=== PATIENT | female | born 1985 | race Caucasian/White ===

== ENCOUNTER 2019-10-18 05:08 | Inpatient (IN) | payer MEDICAID, SELFPAY ==
[2019-10-18] VITALS (21 sets, daily range): BP systolic 86–113; BP diastolic 43–73; PULSE 61–106; RESP 10–16; TEMP 35.7–36.8; O2SAT 95–100; BMI 28.7
[2019-10-18] MEDS: Lactated Ringers 1,000 ML 999 ML IV ×2 (05:40→13:54)
[2019-10-18 06:04] LABS: Absolute Lymphocyte Count 1.98 X10^3/uL (0.83-4.51); Absolute Neutrophil Count 6.4 X10^3/uL (2.0-7.7); Basophil# 0.03 X10^3/uL; Basophil% 0.3 % (0-1); Hematocrit 37.3 % (37-47); Hemoglobin 13.2 g/dL (12.0-15.0); Lymphocyte # 1.98 X10^3/ul (4.0); Lymphocyte % 20.7 % (19-41); Mean Corp Hgb Conc 35.4 g/dL (32-36); Mean Corpuscular Hgb 33.8 pg (27.0-32.0); Mean Corpuscular Volume 95.4 fL (81-99); Mean Platelet Vol. 9.9 fl (6.2-12.0); Monocyte# 0.92 X10^3/uL; Monocyte% 9.6 % (0-10); NRBC Flagged by Analyzer 0 % (0-5); Neutrophil # 6.37 X10^3/uL (2.7-7.7); Neutrophil % 66.8 % (47-70); Platelet Count 152 K/mm3 (150-450); RBC Distribution Width CV 13.3 % (11.6-14.6); RBC Distribution Width SD 46.6 fl (35.1-43.9); Red Blood Count 3.91 M/mm3 (4.2-5.4); White Blood Count 9.6 K/mm3 (4.4-11.0)
[2019-10-18 06:26] LABS: Bedside Glucose 84 mg/dL (70-110)
[2019-10-18] MEDS: Lactated Ringers 1,000 ML 150 ML IV (06:48)
[2019-10-18] MEDS: Sodium Citrate/Citric Acid 30 ML UDC PO (07:17)
--- NOTE | 2019-10-18 07:18 | HP.PCM_ITS ---
- Problem List (1) 39 weeks gestation of Status: Acute (2) Multiparous Status: Acute (3) Breech presentation Status: Acute (4) History of delivery Status: Acute History Date of Admission: 10/18/19 Gestational age: 39 week History of this : This is a 33 year-old, G 3, P 2, at 39 weeks gestational age who presents for a scheduled repeat C/S for breech presentation. No ctx, vb, lof. Good FM. She feels well. Allergies No Known Allergies Allergy (Verified 10/18/19 05:19) Home Medications: Home Medications Pnv No.95/Ferrous Fum/Folic AC [ Caplet] 1 tab PO DAILY 10/18/19 Smoking Status: Former smoker Number of Fetus(es): 1 History Past Pregnancies: Past Pregnancies Delivery Date Name GA/ Weeks Outcome Route Wt Sex Labor Length Anesthesia Delivery Location Provider FOB Expected Infant Delivery Method: Repeat Section Review of Systems Constitutional: Denies: Fever Eyes: Denies: Blurred vision HEENT: Denies: Head Aches Cardiovascular: Denies: Chest Pain Respiratory: Denies: Cough, Shortness of Breath Gastrointestinal: Denies: Abdominal Pain, Nausea, Vomiting Genitourinary: Denies: Dysuria Gynecological: Denies: Vaginal bleeding Neurological: Denies: Blurred vision Physical Exam General: Alert, No apparent distress HEENT: Atraumatic Cardiovascular: Regular rate Lungs: Clear to auscultation Abdomen: Soft, Non Tender, Gravid Extremities:: No edema Neurological: Neuro grossly intact Estimated gestational size: Appropriate for gestational size Presentation: Breech Assessment/Plan All Active Problems 39 weeks gestation of (Acute) Multiparous (Acute) Breech presentation (Acute) History of delivery (Acute) This is a 33 year-old, G3, P2, at 39 weeks gestational age who presents for a scheduled section for breech presentation and history of prior C- section. Risks, benefits, and alternatives to the surgery were discussed in detail with patient. She desires to proceed with a section. Consent was signed. Routine pre-and postoperative care.
[2019-10-18] MEDS: Cefazolin 2 GM in 0.9% Normal Saline 100 ML IV (07:19)
--- NOTE | 2019-10-18 08:19 | OP.PCM_ITS ---
Problem List (1) 39 weeks gestation of Status: Acute (2) Multiparous Status: Acute (3) Breech presentation Status: Acute (4) History of delivery Status: Acute (5) Gestational diabetes Status: Acute Report of Operation Date of Procedure: 10/18/19 Pre-Operative Diagnosis: 39 wk gestation, breech presentation, history prior section, A1GDM Post-Operative Diagnosis: As above Surgery/Procedure Performed:: RLTCS vis pfannenstiel incision Description of Surgical Findings:: Moderate amount of adhesions. The rectus muscles were adhered to the fascia. The rectus muscles were significantly adhered in the midline. Omental adhesions to the peritoneum. Normal-appearing uterus, bilateral tubes, bilateral ovaries. Clear fluid. Intact and normal-appearing placenta. Fetus in breech presentation. Type of Anesthesia:: Spinal Drains: Pierce Estimated Blood Loss (mL): 500 Fluids Replaced: 1000 Description of Procedure: Patient was taken to the operating room where spinal anesthesia was found to be adequate. She was prepped and draped in the dorsal lithotomy position with a leftward tilt. A Pfannenstiel skin incision was made using the scalpel along the prior incision. This incision was carried down to the underlying layer of fascia which was incised in the midline. The fascial incision was extended laterally using Call scissors. The fascia was noted to be adhered to the rectus muscle. The fascia was dissected off of the rectus muscle using a combination of blunt and sharp dissection. This muscles were significantly here in the midline. Using sharp dissection the rectus muscles were in the midline. The peritoneum was then entered bluntly. There were minimal adhesions of the omentum to the peritoneum. The peritoneal incision was extended using sharp dissection with good visualization of the bladder. A bladder flap was created. There were minimal to no adhesions of the bladder to the uterus. A low transverse incision was made on the uterus. Membranes were ruptured for clear fluid. was noted to be in breech presentation. Viable male was delivered in breech presentation without any force or delay. The infant was delivered atraumatically. The cord was clamped and cut after a 60 sec delay. It was handed off to the nursery staff. The placenta was manually removed. At the fundus of the uterus the placenta was noted to be adhered, and manual removal of several additional pieces of placenta and membranes was performed. A sweep in the uterus was performed and no additional placenta or membranes were noted. The uterus was then cleared of all clot and debris. The uterus was exteriorized from the abdomen. Uterine incision was closed in a running locked fashion. Several additional [id number] sutures were placed for hemostasis. The uterus was then placed back in the abdomen. A small hematoma was noted under the serosa of the uterus along the left side of the uterine incision. Hematoma was monitored and did not extend into the broad ligament. The hematoma did not increase in size after extended monitoring. The hematoma measured about 2 cm x 1 cm in size. Uterine incision was noted to be hemostatic. The peritoneum was closed in a running fashion. The rectus muscles were noted to be hemostatic. The fascia was closed in a running fashion. Subcutaneous space was irrigated and made hemostatic. The subcutaneous space was reapproximated in a running fashion. The skin was closed in subcuticular fashion. Steri-Strips were placed and a dressing was placed over the incision. Instrument counts were correct and the patient was taken to the recovery room in stable condition. Grafts/Implants Used: None - Complications None - Admit VTE Documentation VTE Present on Admission: No VTE Mechan Device Prophylaxis: SCD's Delivery Classification: Scheduled Indications for : Repeat Elective , Breech Amniotic Membrane Rupture Type: Artificial Amniotic Fluid Description: Clear Placenta Disposition: [facility] Drain: Pierce to straight drain Cord Entanglement: None Cord Vessel Description: 3 Vessels Infant Gender: Male (1 minute): 9 (5 minute): 9 Delayed cord clamping: Yes Antibiotic Given: Ancef 2 grams IV x1 Pt instructed on risks of surgery: Bleeding, Infection, Need for Future C- Sections, Injury to surrounding structure(s) including bowel and bladder Complications: None
[2019-10-18] MEDS: Oxytocin 30 units/NS 500 ml 30 UNITS/500 ML IV.SOLN 167 UNITS IV (08:56)
[2019-10-18] MEDS: Methylergonovine 0.2 MG/ML Ampul IM (09:35)
[2019-10-18] MEDS: proCHLORPERazine 10 MG/2 ML Vial IV (09:56)
[2019-10-18 11:25] LABS: Bedside Glucose 90 mg/dL (70-110)
[2019-10-18] MEDS: Lactated Ringers 1,000 ML 100 ML IV ×2 (11:58→20:08)
--- NOTE | 2019-10-18 12:10 | NURSING ---
Pt temp 96.3 temporal and 96.1 axillary. Unable to obtain temperature orally using two different thermometers. Pt warm to touch, has fan aimed at face and cold clothes on body previously per previous RN. RN will continue to monitor, will recheck in 1 hr.
--- NOTE | 2019-10-18 12:20 | NURSING ---
Pt has indwelling catheter draining clear, yellow urine.
--- NOTE | 2019-10-18 12:26 | NURSING ---
Dr. Dhaliwal's nurse Cathie called at 1200 that pt had a baseball size clot at 0855 check and massaged uterus to FF U/2 and then 5 minutes later another golf ball size clot so RN administered Methergine 0.2mg IM in rt thigh. Pt also medicated with compazine 10 mg IV for N/V. Abdominal binder placed on pt since moderate amt of drainage on rt side of mepilex dressing, which was circled with a pen. Pt's BP's are 91/57 and 87/54. Nurse will update Dr. Dhaliwal after she is out of surgery. No new orders at this time but son chaves notified that was called.
--- NOTE | 2019-10-18 12:54 | PCM.PN.BLA ---
Progress Note Called for increased vaginal bleeding after and right side of dressing saturated. At bedside to examine patient. She denies lightheadedness, dizziness, chest pain, shortness of breath, uncontrolled pain. She feels well. She has no complaints currently. BP 90's/50's while in room. HR 60-80. Gen: NAD, well appearing Abd: Soft, ATTP, FF @ U Incision: Right side of dressing saturated with dark red blood in an area about 3x2 cm. Incision c/d/i and no current bleeding noted : No current vaginal bleeding. No bleeding noted/expressed with fundal pressure A/P: - S/p 1 dose of Methergine - FF and no current bleeding. Abdomen is ATTP - Will replace dressing. Discussed probing incision if it continues to bleeding - Will give 1 L IVF bolus now and get stat CBC - Discussed possible need for blood transfusion - She is asymptomatic currently. Discussed to let us know if she has any symptoms of anemia STROKE Vital Signs/Narrative: Vital Signs Temp Pulse Resp BP BP Pulse Ox 10/18/19 11:57 96.3 F L 72 13 91/57 L 91/57 L 100 10/18/19 10:55 96.6 F L 65 15 87/54 L 99 10/18/19 10:40 96.9 F L 61 13 87/54 L 98 10/18/19 10:25 97.3 F L 68 12 89/43 L 98 10/18/19 10:10 97.3 F L 74 11 L 86/50 L 95 10/18/19 09:55 97.3 F L 68 12 93/64 98 10/18/19 09:40 97.3 F L 90 12 92/47 L 10/18/19 09:25 96.9 F L 68 10 L 87/54 L 97 10/18/19 09:10 97.6 F L 106 H 12 107/58 L 97 10/18/19 08:55 97.6 F L 86 12 94/48 L 96
--- NOTE | 2019-10-18 14:06 | NURSING ---
IV paused at 1358 for lab to draw blood in right AC. Will restart at 1408.
--- NOTE | 2019-10-18 14:08 | NURSING ---
Addendum entered by Shital Vanessa 10/18/19 14:12: Dressing changed at 1335. Original Note: Mepilex dressing replaced using sterile technique per Dr. Dhaliwal. RN to watch for continued drainage and notify Dr. Dhaliwal if drainage noted.
[2019-10-18] MEDS: Ketorolac 30 MG/ML Syringe IV ×2 (14:21→20:46)
[2019-10-18 14:23] LABS: Hemoglobin 11.2 g/dL (12.0-15.0); Mean Corpuscular Hgb 33.1 pg (27.0-32.0); Mean Corpuscular Volume 94.7 fL (81-99); Mean Platelet Vol. 9.6 fl (6.2-12.0); Platelet Count 132 K/mm3 (150-450); RBC Distribution Width CV 13.4 % (11.6-14.6); Red Blood Count 3.38 M/mm3 (4.2-5.4); White Blood Count 15.1 K/mm3 (4.4-11.0)
--- NOTE | 2019-10-18 15:37 | NURSING ---
Pt up to brush teeth in bathroom with RN standing close by at 1515. Pt ambulated to rocking chair in room immediately after. Pt tolerated well. States it feels good to be up. RN encouraged pt to use incentive spirometer. Pt to call RN when pt would like to get back into bed.
--- NOTE | 2019-10-18 16:24 | NURSING ---
RN received phone call from Dr. Dhaliwal. RN reported no new drainage on replacement dressing, fundus firm, U-1, with small amount of lochia, Hgb 11.2, last BP 101/57, and pt up to chair since 1514 with only one complaint of dizziness when dangling on side of bed that went away per pt. Pt tolerating well. No further orders at this time.
[2019-10-18] MEDS: 0.9% Saline Lock 10 ML Syringe IV (20:47)
[2019-10-19] VITALS (9 sets, daily range): BP systolic 92–120; BP diastolic 49–71; PULSE 86–108; RESP 12–18; TEMP 36.6–37.2; O2SAT 96–98
[2019-10-19] MEDS: Ketorolac 30 MG/ML Syringe IV ×4 (02:24→20:18)
[2019-10-19 04:25] LABS: Hematocrit 27.9 % (37-47); Hemoglobin 9.7 g/dL (12.0-15.0); Mean Corp Hgb Conc 34.8 g/dL (32-36); Mean Corpuscular Hgb 33.8 pg (27.0-32.0); Mean Corpuscular Volume 97.2 fL (81-99); Mean Platelet Vol. 9.2 fl (6.2-12.0); Platelet Count 125 K/mm3 (150-450); RBC Distribution Width CV 13.4 % (11.6-14.6); RBC Distribution Width SD 48.2 fl (35.1-43.9); Red Blood Count 2.87 M/mm3 (4.2-5.4); White Blood Count 11.6 K/mm3 (4.4-11.0)
[2019-10-19 05:15] LABS: Bedside Glucose 90 mg/dL (70-110)
[2019-10-19] MEDS: 0.9% Saline Lock 10 ML Syringe IV ×3 (08:38→20:18)
--- NOTE | 2019-10-19 13:55 | PCM.PN.OB ---
Patient Problems: Active and Suspected Problems 39 weeks gestation of (Acute) Multiparous (Acute) Breech presentation (Acute) History of delivery (Acute) Subjective: Pain well controlled. Average lochia. Tolerating regular diet. No nausea or vomiting. - Physical Exam Vitals/I&O's: Vital Signs Temp Pulse Resp BP Pulse Ox 98.9 F 97 12 101/57 L 97 10/19/19 08:46 10/19/19 08:46 10/19/19 08:46 10/19/19 08:46 10/19/19 08:46 Oxygen Delivery Method Room Air Weight: 75.9 kg Body Mass Index (BMI) 28.7 Intake and Output for Last 24 Hours 10/17/19 10/18/19 10/19/19 23:59 23:59 23:59 Intake Total 3942.50 / 3942.50 633.33 / 633.33 Output Total 2450 / 2450 600 / 600 Balance 1492.50 / 1492.50 33.33 / 33.33 General: Alert, Cooperative, No apparent distress Abdomen: Soft, Distended - Mildly softly, Tender - Appropriately Extremities: Edema - 1+ Skin: Incision - Her bandage is clean dry and intact Laboratory Results 10/18/19 14:12: Screen NEGATIVE, Baby's Blood Type A POSITIVE, Baby's KASSI NEGATIVE 10/18/19 14:12: WBC 15.1 H, RBC 3.38 L, Hgb 11.2 L, Hct 32.0 L, MCV 94.7, MCH 33.1 H, MCHC 35.0, RDW Std Deviation 46.0 H, RDW Coeff of Priscilla 13.4, Plt Count 132 L, MPV 9.6 10/19/19 04:15: WBC 11.6 H, RBC 2.87 L, Hgb 9.7 L, Hct 27.9 L, MCV 97.2, MCH 33.8 H, MCHC 34.8, RDW Std Deviation 48.2 H, RDW Coeff of Priscilla 13.4, Plt Count 125 L, MPV 9.2 10/19/19 04:59: POC Glucose 90 Current Medications Acetaminophen (Tylenol) 1,000 mg PO Q8H PRN PRN Reason: Pain Score 1-3/10 Bisacodyl (Dulcolax) 10 mg RECTAL UD PRN PRN Reason: If no BM Hydrocortisone (Hytone) 1 applic TOPICAL TID PRN PRN; Protocol PRN Reason: Discomfort Lactated Ringer's () 1,000 mls @ 100 mls/hr IV .Q10H [facility] Last Infusion: 10/19/19 02:28 Dose: Infused Documented by: Naloxone HCl 4 mg/ Dextrose 504 mls @ 0 mls/hr IV .Q0M PRN; Protocol PRN Reason: Respiratory depression Ibuprofen (Motrin) 600 mg PO Q6H PRN PRN PRN Reason: Pain Score 1-3/10 Ketorolac Tromethamine (Toradol) 30 mg IV Q6H [facility] Stop: 10/20/19 08:31 Last Admin: 10/19/19 08:39 Dose: 30 mg Documented by: Methylergonovine Maleate (Methergine) 0.2 mg IM X1 PRN PRN Reason: Uterine Atony Last Admin: 10/18/19 09:35 Dose: 0.2 mg Documented by: Naloxone HCl (Narcan) 0.02 mg IV Q1M PRN PRN Reason: RR <10 and pt unresponsive Ondansetron HCl (Zofran) 4 mg IV Q4H PRN PRN PRN Reason: Nausea Oxycodone HCl (Oxyir) 5 - 10 mg PO Q4H PRN PRN PRN Reason: Pain Score 4-10/10 Prochlorperazine Edisylate (Compazine Iv) 10 mg IV Q6H PRN PRN PRN Reason: NAUSEA Last Admin: 10/18/19 09:56 Dose: 10 mg Documented by: Senna/Docusate Sodium (Senokot-S, Chantell-Colace) 0 tablet PO DAILY PRN PRN Reason: Constipation Simethicone (Mylicon) 80 mg PO PCHS PRN PRN Reason: Indigestion/stomach pain Sodium Chloride () 5 - 15 ml IV UD PRN PRN Reason: SALINE FLUSH Last Admin: 10/19/19 08:38 Dose: 10 ml Documented by: Medical Necessity - Tobacco Use Smoking Status: Former smoker Assessment/Plan All Active Problems 39 weeks gestation of (Acute) Multiparous (Acute) Breech presentation (Acute) History of delivery (Acute) Postoperative day #1 status post repeat . Patient and are doing well. She is working on breast-feeding. Platelets trended down slightly, will recheck tomorrow to make sure trending up or stable. Mild acute blood loss anemia appropriate for blood loss during surgery. Patient is tolerating this well. Routine postoperative care.
[2019-10-19] MEDS: Senna/Docusate Sodium 1 Tablet PO (14:14)
[2019-10-19] MEDS: Acetaminophen 500 MG Tablet 1000 MG PO (15:52)
[2019-10-20 02:00] VITALS: BP 100/58; PULSE 99; RESP 18; TEMP 37.1; O2SAT 96
[2019-10-20] MEDS: Ketorolac 30 MG/ML Syringe IV ×2 (04:02→08:32)
[2019-10-20 04:55] LABS: Hematocrit 25.3 % (37-47); Hemoglobin 8.6 g/dL (12.0-15.0); Mean Corpuscular Hgb 33.2 pg (27.0-32.0); Mean Corpuscular Volume 97.7 fL (81-99); Mean Platelet Vol. 9.6 fl (6.2-12.0); Platelet Count 134 K/mm3 (150-450); RBC Distribution Width CV 13.7 % (11.6-14.6); RBC Distribution Width SD 48.6 fl (35.1-43.9); Red Blood Count 2.59 M/mm3 (4.2-5.4); White Blood Count 10.2 K/mm3 (4.4-11.0)
--- NOTE | 2019-10-20 08:28 | PCM.PN.OB ---
Patient Problems: Active and Suspected Problems 39 weeks gestation of (Acute) Multiparous (Acute) Breech presentation (Acute) History of delivery (Acute) Subjective: Patient doing well. She is sitting up at the side of the bed and feeling well. She desires to go home. Denies lightheadedness, dizziness, chest pain, shortness of breath, leg pain. She is ambulating without difficulty. Spontaneously voiding without difficulty. Pain is controlled with Tylenol. He is normal. She is breast-feeding without breast complaints. She denies any symptoms of anemia. - Physical Exam Vitals/I&O's: Vital Signs Temp Pulse Resp BP Pulse Ox 98.7 F 99 18 100/58 L 96 10/20/19 02:00 10/20/19 02:00 10/20/19 02:00 10/20/19 02:00 10/20/19 02:00 Oxygen Delivery Method Room Air Weight: 167 lb 5.294 oz Body Mass Index (BMI) 28.7 Intake and Output for Last 24 Hours 10/18/19 10/19/19 10/20/19 23:59 23:59 23:59 Intake Total 3942.50 / 3942.50 633.33 / 633.33 Output Total 2450 / 2450 600 / 600 Balance 1492.50 / 1492.50 33.33 / 33.33 General: Alert, No apparent distress HEENT: Atraumatic Abdomen: Soft, Non Tender, Non-Distended, - - FF@U-1 Extremities: No edema, No Calf Tenderness Skin: No rashes Neurological: Neuro grossly intact Psych/Mental Status: Normal Affect, Appropriate Laboratory Results 10/20/19 04:35: WBC 10.2, RBC 2.59 L, Hgb 8.6 L, Hct 25.3 L, MCV 97.7, MCH 33.2 H, MCHC 34.0, RDW Std Deviation 48.6 H, RDW Coeff of Priscilla 13.7, Plt Count 134 L, MPV 9.6 Current Medications Acetaminophen (Tylenol) 1,000 mg PO Q8H PRN PRN Reason: Pain Score 1-3/10 Last Admin: 10/19/19 15:52 Dose: 1,000 mg Documented by: Bisacodyl (Dulcolax) 10 mg RECTAL UD PRN PRN Reason: If no BM Hydrocortisone (Hytone) 1 applic TOPICAL TID PRN PRN; Protocol PRN Reason: Discomfort Naloxone HCl 4 mg/ Dextrose 504 mls @ 0 mls/hr IV .Q0M PRN; Protocol PRN Reason: Respiratory depression Ibuprofen (Motrin) 600 mg PO Q6H PRN PRN PRN Reason: Pain Score 1-3/10 Ketorolac Tromethamine (Toradol) 30 mg IV Q6H [facility] Stop: 10/20/19 08:31 Last Admin: 10/20/19 04:02 Dose: 30 mg Documented by: Methylergonovine Maleate (Methergine) 0.2 mg IM X1 PRN PRN Reason: Uterine Atony Last Admin: 10/18/19 09:35 Dose: 0.2 mg Documented by: Naloxone HCl (Narcan) 0.02 mg IV Q1M PRN PRN Reason: RR <10 and pt unresponsive Ondansetron HCl (Zofran) 4 mg IV Q4H PRN PRN PRN Reason: Nausea Oxycodone HCl (Oxyir) 5 - 10 mg PO Q4H PRN PRN PRN Reason: Pain Score 4-10/10 Prochlorperazine Edisylate (Compazine Iv) 10 mg IV Q6H PRN PRN PRN Reason: NAUSEA Last Admin: 10/18/19 09:56 Dose: 10 mg Documented by: Senna/Docusate Sodium (Senokot-S, Chantell-Colace) 0 tablet PO DAILY PRN PRN Reason: Constipation Last Admin: 10/19/19 14:14 Dose: 1 tablet Documented by: Simethicone (Mylicon) 80 mg PO PCHS PRN PRN Reason: Indigestion/stomach pain Sodium Chloride () 5 - 15 ml IV UD PRN PRN Reason: SALINE FLUSH Last Admin: 10/19/19 20:18 Dose: 10 ml Documented by: Medical Necessity - Tobacco Use Smoking Status: Former smoker Assessment/Plan All Active Problems 39 weeks gestation of (Acute) Multiparous (Acute) Breech presentation (Acute) History of delivery (Acute) PPD#2 s/p RLTCS - Pt doing well and desires to go home - Hgb 8.6 this morning. Likely equilibration from PPH on POD#0. Pt is feeling well and denies any symptoms of anemia. Abdominal exam is unremarkable. Lochia has been normal. VSS. Discussed iron supplementation - - Dispo: D/c home today with f/u in the office in 1 week. Reviewed discharge instructions
--- NOTE | 2019-10-20 08:32 | DCINST_ITS ---
Discharge Diet: No Restrictions Discharge Activity: May not drive while taking narcotic pain medications., May Shower May resume sexual activity in: 6 weeks Ice area for (Minutes): 15 Weight Bearing Status: Weight bearing as tolerated Lifting Restrictions: No lifting greater than 15-20 lbs Call your doctor if your incision/area has: Sudden Increased Bleeding, Increased Pain/ Swelling, Increased Redness, Foul Smelling Discharge, Swelling at the incision site Call your doctor if you observe: Fever of 101 or Higher, Inability to urinate, Inability to have a bowel movement, Using more than one pad per hour, Shortness of breath, Dizziness, Fainting spells, Chest pain, Increased palpitations (irregular heartbeat), Calf discomfort, Uncontrolled pain Suture Line Care: Avoid Pulling/Pushing, Avoid Pinching/Bending Cleanse incision/area with: Soap & Water Instructions: After a Additional Instructions: If you experience any of the following, contact your healthcare provider. * Bleeding that soaks a pad every hour for 2 hours * Fever 100.4 or higher * Unrelieved incision or abdominal pain * Swelling, redness, discharge or bleeding from your incision or episiotomy site * Your incision begins to separate * Problems urinating (including inability to urinate or burning while urinating). * Visual changes * Severe headache * Flu-like symptoms * Pain or redness in one of both of your breasts * Pain, warmth, tenderness or swelling in your legs, especially the calf area * Frequent nausea and vomiting * Symptoms of depression or anxiety If you experience any of the following, call 911 or go to the nearest Emergency Room. * Chest pain * Problems breathing * Seizure activity * Partial or complete paralysis of a body part, slurred speech, weakness or drooping of the face, or a sudden inability to walk or hold your balance Allergies/Adverse Reactions: Allergies No Known Allergies Allergy (Verified 10/18/19 05:19) Medications to take at Discharge Pnv No.95/Ferrous Fum/Folic AC [ Caplet] 1 tab PO DAILY 10/18/19 Please Follow Up With: Toyin Dhaliwal DO When: 1 week Primary Care Physician: Cruz David MD [Primary Care Provider] - Test Results: Test results from this visit will be discussed in further detail at your follow- up appointment, if applicable.
[2019-10-20] MEDS: Senna/Docusate Sodium 1 Tablet PO (08:33)
[2019-10-20] MEDS: 0.9% Saline Lock 10 ML Syringe IV (08:33)
[2019-10-20 08:38] VITALS: BP 109/67; PULSE 97; RESP 18; TEMP 36.8; O2SAT 98
== END 2019-10-20 11:50 | disposition home or self-care (01) | DRG 540 ==
PROVIDERS: Obstetrics & Gynecology; Admitting Provider Obstetrics & Gynecology; Referring Provider Obstetrics & Gynecology; Visit Provider Obstetrics & Gynecology
PROC: 10D00Z1 Extraction of Products of Conception, Low, Open Approach (ICD-10-PCS; CPT 59514; principal; 2019-10-18 07:15)
DX: O32.1XX0 Maternal care for breech presentation, not applicable or unspecified (principal); O34.211 Maternal care for low transverse scar from previous cesarean delivery; O24.424 Gestational diabetes mellitus in childbirth, insulin controlled; Z3A.39 39 weeks gestation of pregnancy; Z37.0 Single live birth; O72.2 Delayed and secondary postpartum hemorrhage; O90.81 Anemia of the puerperium; D62 Acute posthemorrhagic anemia
CPT/HCPCS: 36415; 82962; 85025; 85027; 85461; 86850; 86900; 86901; 90384; 99218; J7120; A4216; G0378; J2405; J2790